=== PATIENT | male | born 1980 | race Caucasian/White ===

== ENCOUNTER 2023-10-05 10:35 | Day surgery (SDC) | payer OTHER ==
[~2023-10-05] VITALS: Ht 180.3 cm; Wt 109.6 kg
[~2023-10-05 10:35] MED LIST: Lactated Ringer's 1,000 ML IV ONE; propofoL 50 ML IV ONE
[2023-10-05] MEDS ORDERED: OMEP20ER (11:27)
[2023-10-05] MEDS ORDERED: Lactated Ringer's 1,000 ML IV ONE (12:00)
== END 2023-10-05 12:59 | disposition home or self-care (01) ==
LOC: ORSCSDS 10:35
PROVIDERS: Internal Medicine Gastroenterology
PROC: 0D757ZZ Dilation of Esophagus, Via Natural or Artificial Opening (ICD-10-PCS; principal; 2023-10-05 11:45)
PROC: 0DB58ZX Excision of Esophagus, Via Natural or Artificial Opening Endoscopic, Diagnostic (ICD-10-PCS; principal; 2023-10-05 11:45)
DX: K21.9 Gastro-esophageal reflux disease without esophagitis (principal); R13.10 Dysphagia, unspecified; Z87.891 Personal history of nicotine dependence; Z79.899 Other long term (current) drug therapy
CPT/HCPCS: 88305; J2704; J7120